=== PATIENT | male | born 1960 | race Two or more races ===

== ENCOUNTER 2024-06-03 07:38 | Day surgery (SDC) | payer MEDICARE, MEDICAID, SELFPAY ==
[2024-05-30 08:36] VITALS: BMI 36.0
--- NOTE | 2024-06-02 00:01 | EKG_ITS ---
[facility] Test Date: 2024-06-02 Pat Name: FREDY HERNANDEZ Department: Room: - Gender: Male Office Assistant: OSCAR : 1960 Requested By: Cristopher Kim Order Number: [id number] Reading MD: Cristopher Kim Measurements Intervals [place] Rate: 109 P: 22 TX: 188 QRS: 35 QRSD: 87 T: 45 QT: 321 QTc: 433 Interpretive Statements SINUS TACHYCARDIA ABNORMAL RHYTHM ECG No previous ECG available for comparison /store/S0/[id number].pdf
[2024-06-02 09:51] LABS: Basophils # (Auto) 0.1 Thou/mm3 (0.0-0.2); Basophils % (Auto) 1 % (0-2.5); Eosinophils # (Auto) 0.5 Thou/mm3 (0.0-0.5); Eosinophils % (Auto) 5 % (0-10); Hematocrit 41.8 % (41.0-53.0); Hemoglobin 14.6 g/dL (13.5-16.0); Immature Granulocytes % (Auto) 1 % (0-0); Immature Granulocytes Auto 0.06 Thou/mm3 (0.00-0.00); Lymphocytes # (Auto) 1.5 Thou/mm3 (1.0-4.8); Lymphocytes % (Auto) 16 % (10-50); Mean Corpuscular HGB Conc 34.9 g/dl (31.0-37.0); Mean Corpuscular Hemoglobin 30.4 pg (25.0-35.0); Mean Corpuscular Volume 87 fL (80-100); Monocytes # (Auto) 0.9 Thou/mm3 (0.0-0.8); Monocytes % (Auto) 9 % (0-12); Neutrophils # (Auto) 6.4 Thou/mm3 (1.8-7.7); Neutrophils % (Auto) 68 % (37-80); Nucleated Red Blood Cell % 0 /100 WBC (0); Platelet Count 240 Thou/mm3 (140-440); Red Blood Count 4.81 Miln/mm3 (4.50-5.90); White Blood Count 9.4 Thou/mm3 (3.8-10.6)
[2024-06-02 09:59] LABS: Partial Thromboplastin Time 28.8 Seconds (22.0-36.0); Prothrombin Time 10.8 Seconds (9.0-12.2)
[2024-06-02 10:02] LABS: Anion Gap 9 (7-16); BUN/Creatinine Ratio 12 Ratio (12-20); Blood Urea Nitrogen 16 mg/dL (9-23); Calcium 9.8 mg/dL (8.3-10.6); Carbon Dioxide 28.3 mMol/L (20.0-31.0); Chloride 101 mMol/L (98-107); Creatinine (Component) 1.3 mg/dL (0.6-1.3); Estimated Creatinine Clearance 66.1 mL/min (>60); Glucose 375 mg/dL (74-106); Osmolality,Calculated 291 (275-295); Potassium 4.4 mMol/L (3.4-5.1); Sodium 138 mMol/L (136-145); eGFR > 60 See Note
[2024-06-03] VITALS (11 sets, daily range): BP systolic 122–191; BP diastolic 76–129; PULSE 80–110; RESP 11–22; TEMP 36.6–37; O2SAT 91–98
[2024-06-03] MEDS: INSULIN HUM REGULAR 1 UNIT/0.01 ML (PER UNIT) SC (08:34)
[2024-06-03] MEDS: hydrALAZINE HCL 25 MG TABLET 50 MG PO (08:47)
[2024-06-03] MEDS: amLODIPine BESYLATE 5 MG TABLET 10 MG PO (08:48)
[2024-06-03] MEDS: VALSARTAN 80 MG TABLET 160 MG PO (10:16)
[2024-06-03] MEDS: LORazepam 2 MG/ML VIAL 1 MG IVP (11:24)
[2024-06-03] MEDS: INSULIN HUM REGULAR 1 UNIT/0.01 ML (PER UNIT) 30 UNIT SC (13:22)
--- NOTE | 2024-06-03 14:59 | PC.NURSE ---
1228: Pt received for recovery. Pt awake, alert. Report from Dorina PALMER. Resp even, unlabored. VS stable, Dressing to right groin dry, clean, intact. Distal to femoral insertion site is 2 cm bluish discoloration. No swelling, hematoma. Denies pain. 1245: Right groin dressing remains dry, clean, intact, No increase in size of discoloration. No swelliing, hematoma. Denies pain.
--- NOTE | 2024-06-03 15:50 | ESOP_ITS ---
RE: FREDY HERNANDEZ : 1960 DATE OF OPERATION: 06/03/2024 PROCEDURE PERFORMED: 1. Diagnostic left heart cardiac catheterization, selective coronary angiogram, left ventricular angiogram, CPT 76100. 2. Conscious sedation 30 minutes duration. 3. Ultrasound guidance access of the right radial artery. DIAGNOSES: Angina pectoris, shortness of breath, abnormal nuclear stress test and inferior wall ischemia. HISTORY AND INDICATIONS: The patient is a 63-year-old male with history of hypertension several years, diabetes mellitus type 2, hypercholesterolemia, obesity, back problems, presented with severe shortness of breath, fatigue, atypical chest discomfort on exertion, cardiac stress test, nuclear scan showed inferior wall ischemia, coronary angiogram is recommended _. DESCRIPTION OF PROCEDURE: The patient was brought to cardiac catheterization lab. He was given 2 mg of Versed and 100 mcg fentanyl for sedation. Right femoral approach was taken. Right radial artery was cannulated by micropuncture technique. Ultrasound guidance was used and a 6-[place] Glidesheath was introduced. Selective right and left coronary angiogram was then performed. Left heart catheterization was performed with a 5-[place] TIG-4 diagnostic catheter. Right coronary angiogram performed by TIG-4 diagnostic catheter as well. Left coronary angiogram performed by a 5-[place] JL 3.5 diagnostic catheter, multiple loose were obtained. The patient tolerated the procedure with no complications. Cardiac catheterization showed following findings: HEMODYNAMICS: Left ventricular pressure 100/10, EDP 12, aortic pressure 100/70, no gradient across aortic valve. Left ventricular angiogram showed normal left ventricular wall motion, ejection fraction is 80%. Coronary angiography showed following findings: Right coronary artery showed heavy calcification. A small vessel gives of RV branches. Left coronary system: Left main coronary artery showed mild calcification. Left anterior descending artery showed extensive calcification proximal, mid and distal segment. Distal left anterior descending artery showed 95% stenosis distal one-third, STEMI 2 flow below _ appears to be very close to 95% to 99% stenosis with heavy calcification and complex lesion. Circumflex artery is dominant gives of several obtuse marginal branch and posterolateral branches. Second obtuse marginal branch shows calcification and evidence of moderate 80% to 90% stenosis of the complex lesion. There is also posterolateral branch showing mild to moderate plaque with 30% narrowing. TR band was obtained. Hemostasis was secured. SUMMARY OF FINDINGS: 1. Double vessel coronary artery with evidence of distal left anterior descending artery 95% to 99% stenosis, heavy calcification, complex lesion and second obtuse marginal branch showed evidence of severe 80% to 90% stenosis with heavy calcification. 2. Excellent left ventricular systolic function. RECOMMENDATIONS: The patient recommended to continue aspirin daily, aggressive statin therapy, aggressive medical management of diabetes, hypertension, and hypercholesterolemia. At this time with significant anginal symptoms, we may consider complex PCI of circumflex artery OM branch and distal LAD separately at a lateral date. cc: Cristopher Tirado MD Sebastien DT: 13:52:24 TT: 15:25:00 Ref: [id number] - TID: [id number] [facility]PITAL[facility]
--- NOTE | 2024-06-03 16:55 | PC.NURSE ---
1228: Pt received for recovery. Report from Luiz PALMER. Pt awake, alert. Resp even, unlabored. VS stable. TR band to right wrist intact with no swelling, hematoma. Right radial pulse strong, regular. Denies pain. 1230: BS 281mg/dl. 1300: Late tray received. Pt consuming meal with no difficulty swallowing and no n/v. 1322: Regular insulin administered at this time. 1330: TR band air release started. 2ml released. No bleeding, hematoma. 1410: TR band air release complete. No bleeding, hematoma. Tegaderm and coban applied. 1500: Pt has been resting with no complaints voiced. Dressing to right wrist remains dry, clean, intact. No bleeding, hematoma. Denies pain. 1545: Pt fully awake, oriented x3. Pt assisted to restroom to void. Ambulation steady. Dressing to right wrist remains dry, clean, intact with no bleeding, hematoma. Denies pain. Pt and brother stated understanding of discharge instructions. Pt also instructed to start over the counter Aspirin 81 mg daily tonight per Dr. Tirado. Pt discharged from [facility] in stable condition.
== END 2024-06-03 15:45 | disposition home or self-care (01) ==
PROVIDERS: PCP Family Medicine; Referring Provider Internal Medicine Cardiovascular Disease; Visit Provider Internal Medicine Cardiovascular Disease
PROC: (CPT 93458; principal; 2024-06-03 09:30)
DX: I25.118 Atherosclerotic heart disease of native coronary artery with other forms of angina pectoris (principal); Z01.810 Encounter for preprocedural cardiovascular examination
CPT/HCPCS: 93458; 36415; 80048; 85025; 85610; 85730; 93005; 99152; 99153; A4649; C1769; C1887; C1894; J0171; J0461; J1643; J1815; J2060; J2250; J2310; J2371; J3010; J3490; Q9967; A9270; J1644; J2305

== ENCOUNTER → 2025-04-10 | Outpatient (CLI) | payer MEDICARE, MEDICAID, SELFPAY ==
[2025-04-10 09:34] VITALS: BP 161/90; PULSE 77; RESP 18; TEMP 36.8; O2SAT 95; BMI 37.0
== END | disposition home or self-care (01) ==
PROVIDERS: PCP Family Medicine; Referring Provider Internal Medicine Cardiovascular Disease; Visit Provider Internal Medicine Cardiovascular Disease
PROC: (CPT 96372; principal; 2025-04-10 09:30)
DX: E78.00 Pure hypercholesterolemia, unspecified (principal)
CPT/HCPCS: 96372